=== PATIENT | female | born 1970 | race Caucasian/White ===

== ENCOUNTER 2018-10-04 03:20 | Emergency (ER) | payer OTHER, MEDICAID ==
--- NOTE | 2018-10-04 05:18 | CRLCR ---
Indication: Injury Technique: Two views, 3 films Comparison: None Findings/Impression: There is a distal tibial diaphyseal fracture which is oblique in configuration with 4 millimeters lateral displacement and 6 millimeters posterior displacement of the distal fracture fragment. There is also a corresponding proximal fibular metaphyseal fracture with 4 millimeters lateral displacement of the distal fracture fragment. Moderate adjacent soft tissue swelling. Dictated by Shaquille De Oliveira MD @ Oct 04 2018 5:16AM Signed by Dr. Shaquille De Oliveira @ Oct 04 2018 5:17AM
--- NOTE | 2018-10-04 05:25 | EDM.PDOC ---
ED HPI GENERAL MEDICAL PROBLEM - General Chief Complaint: Lower Extremity Injury/Pain Stated Complaint: HURT RIGHT ANKLE Time Seen by Provider: 10/04/18 05:01 Source of Information: Reports: Patient History Limitations: Reports: No Limitations - History of Present Illness INITIAL COMMENTS - FREE TEXT/NARRATIVE: This lady was walking and tripped of this happened just shortly prior to arrival. She felt some clicking in her leg and thinks she broke it. - Related Data Allergies Allergy/AdvReac Type Severity Reaction Status Date / Time No Known Allergies Allergy Verified 10/04/18 04:22 Past Medical History - Past Health History Medical/Surgical History: Denies Medical/Surgical History [employer] History: Reports: Social & Family History - Tobacco Use Smoking Status *Q: Never Smoker Review of Systems - Review of Systems Review Of Systems: ROS reveals no pertinent complaints other than HPI. ED EXAM, GENERAL - Physical Exam Exam: See Below Exam Limited By: No Limitations General Appearance: Alert, WD/WN, No Apparent Distress (Doesn't look like she is in pain hardly at all) Extremities: Other (There seems to be a little bit of swelling over the proximal fibula. She had a good range of motion of the knee. Little bit of swelling over the distal tibia with associated tenderness. Neurovascular tendon all appears intact normal posterior tibial and dorsalis pedis pulse) Course - Vital Signs Last Recorded V/S: Last Vital Signs Temp 36.4 C 10/04/18 04:24 Pulse 91 10/04/18 04:24 Resp 16 10/04/18 04:24 BP 145/98 H 10/04/18 04:24 Pulse Ox 96 10/04/18 04:24 - Radiology Interpretation Free Text/Narrative:: X-ray shows nondisplaced fracture of the proximal fibula and distal tibia - Re-Assessments/Exams Free Text/Narrative Re-Assessment/Exam: 10/04/18 05:27 A long leg Ortho-Glass splint was made Departure - Departure Time of Disposition: 05:22 Disposition: Home, Self-Care 01 Condition: Fair Clinical Impression: Closed fracture of tibia AND fibula - Discharge Information Referrals: PCP,None [Primary Care Provider] - Forms: ED Department Discharge Additional Instructions: Keep your leg elevated as much as possible. Apply ice to help keep swelling down. For pain use Percocet 5/325 one or 2 every 4-6 hours as needed. This medication can cause sedation and impair driving and can eventually lead to addiction if abused. To prevent nausea you can take the Zofran (ondansetron) 4 mg sublingual every 6-8 hours. Try taking one of these about 30 minutes before you take the pain medication Ill need to follow-up with an orthopedic surgeon early next week.
== END 2018-10-04 05:47 | disposition home or self-care (01) ==
LOC: JP.ED 03:20
DX: S89.101A Unspecified physeal fracture of lower end of right tibia, initial encounter for closed fracture (principal); S89.201A Unspecified physeal fracture of upper end of right fibula, initial encounter for closed fracture; W18.49XA Other slipping, tripping and stumbling without falling, initial encounter; Y93.01 Activity, walking, marching and hiking
CPT/HCPCS: 29505; 73590-RT; 99283; 99283-25